=== PATIENT | female | born 1985 | race Caucasian/White ===

== ENCOUNTER 2017-01-06 20:55 | Observation (INO) | payer OTHER ==
[~2017-01-06 20:55] MED LIST: ACETAMINOPHEN325 M2 PO; ALEVE220 M1 PO; ALEVE220 M3 PO; BENADRYL25 M3 PO; BENTYL10 M1 PO; BENTYL20 M1 PO; CELEXA40 M2 PO; COMPAZINE10 MG PO; DEPAKOTE D500 MG/TA1 PO; DEPAKOTE250 MG PO; DEPO SHOT; DILANTIN100 M1 PO; DILANTIN100 MG PO; ESTRACE1 M3 PO; HYDROCORTISONE30 G8 TP; HYDROXYZINE HCL50 M1 PO; IMITREX; NAPRELAN500 M2 PO; PAIN RELIEVER500 M2 PO; PERCOCET 5-3251 EACH PO; PHENYTOIN; PROMETHAZINE HC25 M3 PO; TOPAMAX100 M2 PO; TOPAMAX25 M2 PO; TOPAMAX50 M3 PO; TORADOL PO; TRAMADOL; TRAMADOL HCL50 MG PO; TRAZODONE HCL50 M1 PO; TRI-SPRINTEC1 TAB PO; TYLENOL EXTRA500 M1 PO; TYLENOL PO; TYLENOL500 MG PO; ULTRAM50 M1 PO; ULTRAM50 MG PO; VALIUM5 MG PO; VIBRAMYCIN100 M1 PO; ZOFRAN ODT4 MG PO; ZOFRAN ODT4 MG/UDTAB PO; [UNRECOGNIZED DRUG - OTHER] PO
[2017-01-06] MEDS ORDERED: COMPAZINE10 MG PO (21:14)
[2017-01-06] MEDS ORDERED: BENTYL10 M1 PO (21:14)
[2017-01-06 22:12] LABS: BASO % 0.4 % (0-2); EOS % 1.1 % (0-7); EOSINOPHIL ABSOLUTE COUNT 0.1 tho/cmm (0.0-0.7); HCT-HEMATOCRIT 41.5 % (34.0-49.0); IMMATURE GRANULOCYTES ABSOLUTE 0.03 tho/cmm (0-0.03); IMMATURE GRANULOCYTES PERCENT 0.4 % (0-0.3); LYMPH % 40.3 % (20-45); MCH (MEAN CORPUSCULAR HGB) 29.3 pg (28.0-32.0); MCHC MEAN CORPUSCULAR HGB CONC 33.7 % (32.0-36.0); MCV (MEAN CELL VOLUME) 86.8 fl (82.0-96.0); MEAN PLATELET VOLUME 9.5 cmc (9.4-12.4); MONO % 5.7 % (0-12); MONOCYTE ABSOLUTE COUNT 0.4 tho/cmm (0.0-1.2); NEUTROPHIL ABSOLUTE COUNT 3.8 tho/cmm (1.6-8.0); NEUTROPHIL-AUTOMATED 3.8 tho/cmm (1.6-8.0); NEUTROPHILS % 52.1 % (40-80); PLATELET COUNT 239 tho/cmm (150-450); RED BLOOD COUNT 4.78 mil/cmm (4.00-5.20); WHITE BLOOD COUNT 7.3 tho/cmm (4.0-10.0)
[2017-01-06 22:28] LABS: ALB/GLOB RATIO 1.1 (0.8-2.0); ALBUMIN 3.9 g/dl (3.5-5.0); ALKALINE PHOSPHATASE 84 U/L (33-138); ALT/SGPT 22 U/L (12-78); BILIRUBIN,TOTAL 0.2 mg/dl (0-1.5); BLOOD UREA NITROGEN 14 mg/dl (6-24); CALCIUM 8.8 mg/dl (8.5-10.5); CARBON DIOXIDE-VENOUS 23 mmol/L (22-32); CHLORIDE 109 mmol/l (96-110); CREATININE 0.92 mg/dl (0.50-1.10); GLUCOSE 95 mg/dL (70-110); LIPASE 183 U/L (73-393); SODIUM 141 mmol/L (135-145); eGFR VALUE FOR BLACK >90 mL/Min
[2017-01-06 22:39] LABS: ANION GAP 13 mmol/L (0-20)
[2017-01-06 22:40] LABS: AST/SGOT 23 U/L (10-40); POTASSIUM 3.7 mmol/L (3.7-5.1)
[2017-01-06 22:56] LABS: URINE APPEARANCE CLEAR; URINE BILIRUBIN NEGATIVE (NEG); URINE BLOOD NEGATIVE (NEG); URINE COLOR YELLOW; URINE GLUCOSE (UA) NEGATIVE (NEG); URINE KETONE NEGATIVE (NEG); URINE LEUKOCYTE ESTERASE NEGATIVE (NEG); URINE NITRITE NEGATIVE (NEG); URINE PROTEIN NEGATIVE (NEG)
[2017-01-07 05:57] LABS: ANION GAP 10 mmol/L (0-20); BLOOD UREA NITROGEN 10 mg/dl (6-24); CALCIUM 7.8 mg/dl (8.5-10.5); CARBON DIOXIDE-VENOUS 26 mmol/L (22-32); CHLORIDE 113 mmol/l (96-110); CREATININE 0.81 mg/dl (0.50-1.10); GLUCOSE 94 mg/dL (70-110); POTASSIUM 3.5 mmol/L (3.7-5.1); SODIUM 145 mmol/L (135-145); eGFR VALUE FOR BLACK >90 mL/Min
[2017-01-08] MEDS ORDERED: PRILOSEC OTC20 M1 PO (15:36)
[2017-01-08] MEDS ORDERED: COLESTID1 GM PO (15:36)
[2017-01-08] MEDS ORDERED: ACETAMINOPHEN325 M2 PO (15:37)
[2017-01-09 04:39] LABS: BASO % 0.4 % (0-2); EOS % 0.8 % (0-7); EOSINOPHIL ABSOLUTE COUNT 0.1 tho/cmm (0.0-0.7); HCT-HEMATOCRIT 40.4 % (34.0-49.0); HGB-HEMOGLOBIN 13.5 gm/dl (12.0-15.5); IMMATURE GRANULOCYTES ABSOLUTE 0.02 tho/cmm (0-0.03); IMMATURE GRANULOCYTES PERCENT 0.3 % (0-0.3); LYMPH % 48.6 % (20-45); LYMPH ABSOLUTE COUNT 3.4 tho/cmm (0.8-4.5); MCHC MEAN CORPUSCULAR HGB CONC 33.4 % (32.0-36.0); MCV (MEAN CELL VOLUME) 86.9 fl (82.0-96.0); MEAN PLATELET VOLUME 9.5 cmc (9.4-12.4); MONO % 5.2 % (0-12); MONOCYTE ABSOLUTE COUNT 0.4 tho/cmm (0.0-1.2); NEUTROPHIL ABSOLUTE COUNT 3.2 tho/cmm (1.6-8.0); NEUTROPHIL-AUTOMATED 3.2 tho/cmm (1.6-8.0); NEUTROPHILS % 44.7 % (40-80); PLATELET COUNT 227 tho/cmm (150-450); RED BLOOD COUNT 4.65 mil/cmm (4.00-5.20); RED CELL DISTRIBUTION WIDTH 14.1 % (12.4-16.4); WHITE BLOOD COUNT 7.1 tho/cmm (4.0-10.0)
[2017-01-09 04:57] LABS: ANION GAP 13 mmol/L (0-20); BLOOD UREA NITROGEN 8 mg/dl (6-24); CALCIUM 8.4 mg/dl (8.5-10.5); CARBON DIOXIDE-VENOUS 20 mmol/L (22-32); CHLORIDE 111 mmol/l (96-110); CREATININE 0.94 mg/dl (0.50-1.10); GLUCOSE 96 mg/dL (70-110); MAGNESIUM 2.1 mg/dl (1.3-2.6); POTASSIUM 3.6 mmol/L (3.7-5.1); SODIUM 140 mmol/L (135-145); eGFR VALUE FOR BLACK >90 mL/Min
[2017-01-28] MEDS ORDERED: TOPAMAX100 M2 (19:32)
[2017-05-26] MEDS ORDERED: MICONAZOLE NITR15 GM TP (15:54)
[2017-06-14] MEDS ORDERED: VALIUM5 M1 PO (01:19)
== END 2017-01-09 15:20 ==
LOC: EDMED 20:55 → EMR2 01-07 02:05 → CAR1 01-07 02:38
PROVIDERS: Emergency Medicine; Internal Medicine; ADMIT Internal Medicine
PROC: 0DB98ZX Excision of Duodenum, Via Natural or Artificial Opening Endoscopic, Diagnostic (ICD-10-PCS; principal; 2017-01-08)
PROC: 0DB68ZX Excision of Stomach, Via Natural or Artificial Opening Endoscopic, Diagnostic (ICD-10-PCS; 2017-01-08)
PROC: 0DBE8ZX Excision of Large Intestine, Via Natural or Artificial Opening Endoscopic, Diagnostic (ICD-10-PCS; 2017-01-08)
DX: K29.50 Unspecified chronic gastritis without bleeding (principal); G89.29 Other chronic pain; M79.7 Fibromyalgia; G43.909 Migraine, unspecified, not intractable, without status migrainosus; R19.7 Diarrhea, unspecified; F32.9 Major depressive disorder, single episode, unspecified; R91.1 Solitary pulmonary nodule; R11.2 Nausea with vomiting, unspecified; F41.9 Anxiety disorder, unspecified; Z79.899 Other long term (current) drug therapy; Z88.0 Allergy status to penicillin; Z88.1 Allergy status to other antibiotic agents; Z88.5 Allergy status to narcotic agent; Z88.8 Allergy status to other drugs, medicaments and biological substances; Z87.891 Personal history of nicotine dependence; Z90.49 Acquired absence of other specified parts of digestive tract; Z90.710 Acquired absence of both cervix and uterus; Z90.89 Acquired absence of other organs; Z98.890 Other specified postprocedural states
CPT/HCPCS: G0378; J0500; J2405; J2550; J3010; J7030; Q9967

== ENCOUNTER 2017-01-20 20:36 | Emergency (ER) | payer OTHER ==
[~2017-01-20 20:36] MED LIST changes: +COLESTID1 GM PO; +PRILOSEC OTC20 M1 PO
[2017-01-21] MEDS ORDERED: LATUDA20 M1 PO (01:08)
[2017-01-21] MEDS ORDERED: OMEPRAZOLE40 M2 PO (01:09)
[2017-01-21] MEDS ORDERED: COLESTID1 GM PO (01:09)
[2017-01-21] MEDS ORDERED: ANUSOL-HC25 MG PR (01:09)
[2017-01-21] MEDS ORDERED: COMPAZINE10 MG PO (01:09)
[2017-01-21] MEDS ORDERED: TOPAMAX50 M3 PO (01:10)
[2017-01-21] MEDS ORDERED: CELEXA20 M2 PO (01:10)
[2017-01-21] MEDS ORDERED: TRAZODONE HCL50 M1 PO (01:10)
[2017-01-21] MEDS ORDERED: ESTRACE1 M3 PO (01:10)
[2017-01-21] MEDS ORDERED: VISTARIL50 M1 PO (01:11)
[2017-01-21 01:35] LABS: BASO % 0.5 % (0-2); EOS % 1.1 % (0-7); EOSINOPHIL ABSOLUTE COUNT 0.1 tho/cmm (0.0-0.7); HCT-HEMATOCRIT 40.2 % (34.0-49.0); HGB-HEMOGLOBIN 13.4 gm/dl (12.0-15.5); IMMATURE GRANULOCYTES ABSOLUTE 0.01 tho/cmm (0-0.03); IMMATURE GRANULOCYTES PERCENT 0.2 % (0-0.3); LYMPH % 42.4 % (20-45); LYMPH ABSOLUTE COUNT 2.7 tho/cmm (0.8-4.5); MCH (MEAN CORPUSCULAR HGB) 28.8 pg (28.0-32.0); MCHC MEAN CORPUSCULAR HGB CONC 33.3 % (32.0-36.0); MCV (MEAN CELL VOLUME) 86.3 fl (82.0-96.0); MEAN PLATELET VOLUME 9.7 cmc (9.4-12.4); MONO % 5.9 % (0-12); MONOCYTE ABSOLUTE COUNT 0.4 tho/cmm (0.0-1.2); NEUTROPHIL ABSOLUTE COUNT 3.2 tho/cmm (1.6-8.0); NEUTROPHIL-AUTOMATED 3.2 tho/cmm (1.6-8.0); NEUTROPHILS % 49.9 % (40-80); PLATELET COUNT 227 tho/cmm (150-450); RED BLOOD COUNT 4.66 mil/cmm (4.00-5.20); RED CELL DISTRIBUTION WIDTH 13.7 % (12.4-16.4); WHITE BLOOD COUNT 6.4 tho/cmm (4.0-10.0)
[2017-01-21 01:46] LABS: ANION GAP 13 mmol/L (0-20); BLOOD UREA NITROGEN 16 mg/dl (6-24); CALCIUM 8.7 mg/dl (8.5-10.5); CARBON DIOXIDE-VENOUS 23 mmol/L (22-32); CHLORIDE 109 mmol/l (96-110); CREATININE 0.92 mg/dl (0.50-1.10); GLUCOSE 94 mg/dL (70-110); LIPASE 165 U/L (73-393); POTASSIUM 3.6 mmol/L (3.7-5.1); SODIUM 141 mmol/L (135-145); eGFR VALUE FOR BLACK >90 mL/Min
[2017-01-21 02:15] LABS: URINE BILIRUBIN SMALL (NEG); URINE BLOOD NEGATIVE (NEG); URINE GLUCOSE (UA) NEGATIVE (NEG); URINE KETONE NEGATIVE (NEG); URINE LEUKOCYTE ESTERASE NEGATIVE (NEG); URINE NITRITE NEGATIVE (NEG); URINE PROTEIN SMALL (NEG); URINE SPECIFIC GRAVITY 1.025 (1.003-1.030)
[2017-01-21 02:16] LABS: URINE APPEARANCE CLEAR; URINE COLOR YELLOW
[2017-01-21 02:20] LABS: URINE BACTERIA 1+; URINE MUCUS 1+
[2017-01-28] MEDS ORDERED: TOPAMAX100 M2 (19:32)
[2017-05-26] MEDS ORDERED: MICONAZOLE NITR15 GM TP (15:54)
[2017-06-14] MEDS ORDERED: VALIUM5 M1 PO (01:19)
== END 2017-01-21 03:15 ==
LOC: EDMED 20:36
PROVIDERS: Physician Assistant
DX: R11.2 Nausea with vomiting, unspecified (principal); R05 Cough; R19.7 Diarrhea, unspecified; K27.9 Peptic ulcer, site unspecified, unspecified as acute or chronic, without hemorrhage or perforation; Z90.710 Acquired absence of both cervix and uterus; Z90.49 Acquired absence of other specified parts of digestive tract; Z87.891 Personal history of nicotine dependence; Z79.899 Other long term (current) drug therapy
CPT/HCPCS: J1885; J2405; J7030

== ENCOUNTER 2017-01-28 19:34 | Emergency (ER) | payer OTHER ==
[~2017-01-28 19:34] MED LIST changes: +ANUSOL-HC25 MG PR; +CELEXA20 M2 PO; +LATUDA20 M1 PO; +OMEPRAZOLE40 M2 PO; +TOPAMAX100 M2; +VISTARIL50 M1 PO
[2017-01-28] MEDS ORDERED: COLESTID1 GM PO (19:35)
[2017-05-26] MEDS ORDERED: MICONAZOLE NITR15 GM TP (15:54)
[2017-06-14] MEDS ORDERED: VALIUM5 M1 PO (01:19)
== END 2017-01-28 20:54 ==
LOC: EDMED 19:34
PROC: 2W3LXYZ Immobilization of Right Lower Extremity using Other Device (ICD-10-PCS; principal; 2017-01-28)
DX: S80.01XA Contusion of right knee, initial encounter (principal); G40.909 Epilepsy, unspecified, not intractable, without status epilepticus; Z87.891 Personal history of nicotine dependence; Z79.899 Other long term (current) drug therapy; W22.8XXA Striking against or struck by other objects, initial encounter; Y92.019 Unspecified place in single-family (private) house as the place of occurrence of the external cause
CPT/HCPCS: J1885

== ENCOUNTER 2017-03-23 20:35 | Emergency (ER) | payer OTHER ==
[2017-03-23] MEDS ORDERED: PRAZOSIN HCL1 M2 PO (22:18)
[2017-03-23 22:33] LABS: BASO % 0.5 % (0-2); EOS % 2.7 % (0-7); EOSINOPHIL ABSOLUTE COUNT 0.2 tho/cmm (0.0-0.7); HCT-HEMATOCRIT 42.3 % (34.0-49.0); HGB-HEMOGLOBIN 14.2 gm/dl (12.0-15.5); IMMATURE GRANULOCYTES ABSOLUTE 0.02 tho/cmm (0-0.03); IMMATURE GRANULOCYTES PERCENT 0.3 % (0-0.3); LYMPH % 44.4 % (20-45); LYMPH ABSOLUTE COUNT 2.7 tho/cmm (0.8-4.5); MCH (MEAN CORPUSCULAR HGB) 29.3 pg (28.0-32.0); MCHC MEAN CORPUSCULAR HGB CONC 33.6 % (32.0-36.0); MCV (MEAN CELL VOLUME) 87.4 fl (82.0-96.0); MEAN PLATELET VOLUME 10.4 cmc (9.4-12.4); MONO % 5.2 % (0-12); MONOCYTE ABSOLUTE COUNT 0.3 tho/cmm (0.0-1.2); NEUTROPHIL ABSOLUTE COUNT 2.8 tho/cmm (1.6-8.0); NEUTROPHIL-AUTOMATED 2.8 tho/cmm (1.6-8.0); NEUTROPHILS % 46.9 % (40-80); PLATELET COUNT 215 tho/cmm (150-450); RED BLOOD COUNT 4.84 mil/cmm (4.00-5.20); RED CELL DISTRIBUTION WIDTH 13.6 % (12.4-16.4)
[2017-03-23 22:46] LABS: ANION GAP 15 mmol/L (0-20); BLOOD UREA NITROGEN 13 mg/dl (6-24); CALCIUM 8.4 mg/dl (8.5-10.5); CARBON DIOXIDE-VENOUS 22 mmol/L (22-32); CHLORIDE 109 mmol/l (96-110); CREATININE 0.96 mg/dl (0.50-1.10); GLUCOSE 109 mg/dL (70-110); SODIUM 142 mmol/L (135-145); eGFR VALUE FOR BLACK >90 mL/Min
[2017-03-23 22:53] LABS: POTASSIUM 3.8 mmol/L (3.7-5.1)
[2017-03-23 23:02] LABS: URINE BILIRUBIN NEGATIVE (NEG); URINE BLOOD NEGATIVE (NEG); URINE GLUCOSE (UA) NEGATIVE (NEG); URINE KETONE NEGATIVE (NEG); URINE LEUKOCYTE ESTERASE NEGATIVE (NEG); URINE NITRITE NEGATIVE (NEG); URINE PROTEIN NEGATIVE (NEG); URINE SPECIFIC GRAVITY 1.015 (1.003-1.030)
[2017-03-23 23:12] LABS: URINE APPEARANCE SL CLOUDY; URINE COLOR PALE YELLOW
[2017-05-26] MEDS ORDERED: MICONAZOLE NITR15 GM TP (15:54)
[2017-06-14] MEDS ORDERED: VALIUM5 M1 PO (01:19)
== END 2017-03-24 00:41 ==
LOC: EDMED 20:35
PROVIDERS: Emergency Medicine
DX: R10.11 Right upper quadrant pain (principal); K21.9 Gastro-esophageal reflux disease without esophagitis; Z90.49 Acquired absence of other specified parts of digestive tract; Z90.710 Acquired absence of both cervix and uterus
CPT/HCPCS: J2175; J2405; J7030; Q9967